=== PATIENT | female | born 1975 | race Caucasian/White ===

== ENCOUNTER 2019-03-06 06:11 | Day surgery (SDC) | payer BC ==
[~2019-03-06] VITALS: Ht 157.5 cm; Wt 80.9 kg
[2019-03-06] VITALS (16 sets, daily range): BP systolic 128–189; BP diastolic 64–108; PULSE 92–109; RESP 10–35; Ht 157.5 cm; Wt 80.9 kg
[~2019-03-06 06:11] MED LIST: BUPIVACAINE 0.25% (MPF) 30 ML INJ INJ ONE
[2019-03-06] MEDS ORDERED: SOD CHLORIDE 0.9% 1,000 ML IV ONE (07:30)
[2019-03-06] MEDS ORDERED: CEFAZOLIN 2 GM/50 ML (PMX) 50 ML IVPB ONE (07:30)
[2019-03-06] MEDS ORDERED: DEXTROSE 5% IV ONE (08:30)
[2019-03-06] MEDS ORDERED: WATER IV ONE (08:30)
[2019-03-06] MEDS ORDERED: INSU200I SQ (08:49)
[2019-03-06] MEDS ORDERED: TRAZ-111 PO (08:49)
[2019-03-06] MEDS ORDERED: TREX50 PO (08:49)
[2019-03-06] MEDS ORDERED: INSU100I33 SC (08:49)
[2019-03-06] MEDS ORDERED: FLUO20CA22 PO (08:49)
[2019-03-06] MEDS ORDERED: CHLO25CA9 ORAL (08:49)
[2019-03-06] MEDS ORDERED: ARIP5TAB14 PO (08:49)
--- NOTE | 2019-03-06 09:40 | PREAC ---
Date/Time of Note Date/Time of Note DATE: 03/06/19 TIME: 09:38 Anesthesia Eval and Record Evaluation Time Pre-Procedure Interview DATE: 03/06/19 TIME: 09:38 Age 43 Sex female NPO: 8 hrs Preoperative diagnosis gallstones Planned procedure lap choly Past Medical History Past Medical History: Includes Cardio: HTN (undiagnosed) Endo: Diabetes Psych: Depression, Anxiety Surgery & Anesthesia Issues No known issue Meds Anticoagulation: No Beta Rachana within 24 hr: No Reason Beta Rachana not given: Pt. not on B-Rachana Reported Medications Insulin Lispro (Humalog Kwikpen) 200 Unit/1 Ml Insuln.pen, 0-12 UNIT SQ AC A PRN for PER SLIDING SCALE, EA 03/06/19 Insulin Glargine,Hum.rec.anlog (Basaglar Kwikpen U-100) 100 Unit/1 Ml Insuln.pen, 60 UNITS SC QHS 03/06/19 Chlordiazepoxide* (Chlordiazepoxide*) 25 Mg Capsule, 1 CAP ORAL BID 03/06/19 Fluoxetine Hcl* (Fluoxetine Hcl*) 20 Mg Capsule, 60 MG PO DAILY, CAP 03/06/19 Aripiprazole* (Abilify*) 5 Mg Tab, 5 MG PO DAILY, #30 TAB 03/06/19 Naltrexone Hcl (Trexan) 50 Mg Tab, 50 MG PO DAILY, TAB 03/06/19 Trazodone Hcl* (Trazodone Hcl*) 50 Mg Tablet, 50 MG PO QHS, #30 TAB 03/06/19 Current Medications Sodium Chloride 1,000 ml @ 75 mls/hr [id number] ONCE IV ; Start 03/06/19 at 07:30; Stop 03/06/19 at 20:49 Meds reviewed: Yes Allergies Coded Allergies: No Known Allergy (Unverified , 03/06/19) Allergies Reviewed: Yes Labs/Studies Labs Reviewed: Reviewed by anesthesiologist Result Diagram: 03/06/1982403/06/19824 Laboratory Tests 03/06/19 08:25 test: Negative Pre-procedure Exam Last vitals Vital Signs Date Temp Pulse Resp B/P (MAP) Pulse Ox O2 O2 Flow FiO2 Time Delivery Rate 03/06/19 98.0 109 16 171/108 98 08:49 (129) Airway: Adequate mouth opening, Adequate thyromental dist Mallampati: Mallampati III Teeth: Normal Lung: Normal Heart: Normal ASA Physical Status ASA physical status: 2 Emergency: None Pre-operative Attestations Prior to commencing anesthesia and surgery, the patient was re-evaluated, there was verification of: *The patient's identity *The results of appropriate recent lab work and preoperative vital signs *The above evaluation not changing prior to induction *Anesthetic plan, risk benefits, alternative and complications discussed with patient/family; questions answered; patient/family understands, accepts and wishes to proceed. NELIA HAHN DO Mar 06, 2019 09:39
[2019-03-06] MEDS ORDERED: MIDAZOLAM 1 MG/ML 2 ML INJ ONE (09:48)
[2019-03-06] MEDS ORDERED: ROCURONIUM 50 MG INJ ONE (09:48)
[2019-03-06] MEDS ORDERED: PROPOFOL 20 ML ONE (09:48)
[2019-03-06] MEDS ORDERED: LIDOCAINE 2% (SDV) 5 ML INJ ONE (09:48)
[2019-03-06] MEDS ORDERED: DESFLURANE 15 MIN ONE (09:48)
[2019-03-06] MEDS ORDERED: ROPIVACAINE 0.5 % 30 ML VIAL ONE (09:54)
[2019-03-06] MEDS ORDERED: hydrALAzine 20 MG INJ IV PRN (10:00)
[2019-03-06] MEDS ORDERED: DIPHENHYDRAMINE 50 MG INJ IV PRN (10:00)
[2019-03-06] MEDS ORDERED: MEPERIDINE 25 MG INJ IV PRN (10:00)
[2019-03-06] MEDS ORDERED: ONDANSETRON 4 MG INJ IV PRN (10:00)
[2019-03-06] MEDS ORDERED: OXYCODONE/ACETAMINOPHEN (5/325) TAB PO PRN ×2 (10:00)
[2019-03-06] MEDS ORDERED: HYDROmorphONE 1 MG/5 ML IV SYRINGE IV PRN ×3 (10:00)
[2019-03-06] MEDS ORDERED: LABETALOL HCL 20MG INJ IV PRN (10:00)
[2019-03-06] MEDS ORDERED: CEFAZOLIN 1 GM INJ ONE (10:15)
[2019-03-06] MEDS ORDERED: ONDANSETRON 4 MG INJ ONE (10:16)
[2019-03-06] MEDS ORDERED: SUGAMMADEX SODIUM 200 MG/2 ML VIAL IV ONE (10:48)
--- NOTE | 2019-03-06 10:55 | OPR ---
Date/Time of Note Date/Time of Note DATE: 03/06/19 TIME: 10:53 Operative Report Procedure Date: Mar 06, 2019 Preoperative Diagnosis symptomatic gallstones Postoperative Diagnosis same Operation/Procedure Performed laparoscopic cholecystectomy Surgeon see signature line [place]isqueak Chalker none Anesthesia Type: general Estimated Blood Loss: 0 - 10 ml's Transfusion none Specimen gallbladder Grafts/Implants none Complications none Pt Condition Post Procedure: stable Indications Is a 43-year-old female with some tender gallstones. She required surgical excision of her gallbladder. Risks alternatives benefits and personal were discussed the patient. Patient expressed understanding and consents to the operation. Procedure Description Patient is taken to the OR and prepped and draped in usual sterile fashion. Surgical time was performed. IV antibiotics given. Infraumbilical transverse incision was made with a 15 blade. Dissection cautery skin onto the fascia. The fascia was grasped with Jah's and divided with curved Hale scissors. 0 Vicryl use this was placed into the fascial incision. Tyler trocar was introduced. Pneumoperitoneum was established. Midepigastric 12 mm optical trochars placed under direct visualization. Right upper quadrant upper flank 5 mm optical trochars were placed under direct visualization. Upon initial inspection there are some adhesions to gallbladder. The gallbladder adhesions were taken down bluntly. The gallbladder was grasped with the fundus retracted and lateral cephalad direction. [place] graspers were used to dissect the cystic duct and cystic artery. The critical view was established. Due to its thickened tissues the cystic duct and cystic artery were divided with a 35 mm echelon stapler with 2 fire loads. Good hemostasis established the staple line was reinforced with clips. The gallbladder was taken off and retrieved using Endo Catch bag. All ports removed under direct visualization. Overdiuresis was tied down. Skin is closed and skin danna. A tap block was provided with ane sthesia of the being the case. Dry dressings were applied. Zachary ROBERTSON Mar 06, 2019 10:55
[2019-03-06] MEDS ORDERED: HYDROCODONE/APAP (5/325) TAB PO ONE (11:00)
--- NOTE | 2019-03-06 11:12 | PAC ---
Date/Time of Note Date/Time of Note DATE: 03/06/19 TIME: 11:12 Post-Anesthesia Notes Post-Anesthesia Note Last documented vital signs Vital Signs Date Temp Pulse Resp B/P (MAP) Pulse Ox O2 O2 Flow FiO2 Time Delivery Rate 03/06/19 98 95 16 170/85 98 1112 Activity: WNL Respiratory function: WNL Cardiovascular function: WNL Mental status: Baseline Pain reasonably controlled: Yes Hydration appropriate: Yes Nausea/Vomiting absent: Yes NELIA HAHN DO Mar 06, 2019 11:12
== END 2019-03-06 13:25 | disposition home or self-care (01) ==
LOC: SDS 06:11
PROVIDERS: ATTEND Surgery
DX: K80.10 Calculus of gallbladder with chronic cholecystitis without obstruction (principal); I10 Essential (primary) hypertension; E11.9 Type 2 diabetes mellitus without complications; Z79.4 Long term (current) use of insulin
CPT/HCPCS: 47562; 80053; 82962; 84703; 85025; 85730; 88304; J0360; J0690; J1170; J1200; J2250; J2405; J2795; J3010; J7070; Z7512; Z7610